=== PATIENT | male | born 1985 | race Caucasian/White ===

== ENCOUNTER 2023-10-04 16:32 | Emergency (ER) | payer SELFPAY ==
[2023-10-04] VITALS (11 sets, daily range): BP systolic 92–127; BP diastolic 58–76; PULSE 94–127; RESP 15–20; TEMP 36.8–39.5; O2SAT 95–99; BMI 21.1
--- NOTE | 2023-10-04 16:52 | CT_ITS ---
EXAM: CT ABDOMEN AND PELVIS WITH INTRAVENOUS CONTRAST CLINICAL INDICATION: RLQ pain TECHNIQUE: Helically acquired images were obtained of the abdomen and pelvis with intravenous contrast. CTDIvol = ( 9.12 ) mGy, DLP = ( 432.00 ) mGycm This CT exam was performed using one or more of the following dose reduction techniques: automated exposure control, adjustment of the mA and/or kV according to patient size, and/or use of iterative reconstruction technique. CONTRAST: IV 100mL Isovue-370 COMPARISON: No relevant prior studies available. FINDINGS: LOWER THORAX: Unremarkable. Lung bases are clear. No cardiomegaly. No significant pericardial effusion. ABDOMEN: LIVER: Unremarkable. Homogeneous. No focal mass. GALLBLADDER AND BILE DUCTS: Unremarkable. No calcified gallstones. No gallbladder distention or wall edema. No intra- or extrahepatic biliary ductal dilation. PANCREAS: Unremarkable. No focal cystic or solid mass. SPLEEN: Unremarkable. Normal size without focal cystic or solid mass. ADRENALS: Unremarkable. No nodules. KIDNEYS AND URETERS: Unremarkable. Normal renal size and position. No hydronephrosis. STOMACH AND BOWEL: Unremarkable. No stomach or bowel distention. No focal inflammatory change. PELVIS: APPENDIX: Findings of acute retrocecal appendicitis. Appendix measures up to 1.2 cm in width with a significant amount of surrounding inflammation and some surrounding fluid in the right lower quadrant. BLADDER: Unremarkable. REPRODUCTIVE: Unremarkable as visualized. No mass. ABDOMEN and PELVIS: INTRAPERITONEAL SPACE: Unremarkable. No ascites or other fluid collection. No free intraperitoneal air. BONES/JOINTS: Unremarkable. No suspicious lytic or blastic abnormality. SOFT TISSUES: Unremarkable. No discrete abdominal or pelvic wall hernia. VASCULATURE: Unremarkable. Abdominal aorta is non-dilated. LYMPH NODES: Unremarkable. No enlarged lymph nodes. OTHER FINDINGS: No definite phlegmon or abscess. CT/Abdomen/Pelvis W IV Cont ONLY IMPRESSION: 1. Acute retrocecal appendicitis. Although there is no free intraperitoneal air, there is some fluid surrounding the appendix raising the possibility of microperforation although this could also be reactive. 2. No phlegmon or abscess. Electronically Signed: Cortez Dupont MD at 18:30 EST ,
--- NOTE | 2023-10-04 16:53 | EX.ED.DYSGE1 ---
HPI <HENRY Gregory - Last Filed: 10/04/23 20:57> History of Present Illness Chief Complaint: Abd Pain Narrative Narrative: Patient presenting today due to abdominal pain that started around 1 AM this morning. He reports that the pain started as a sharp and constant periumbilical pain that now seems to be more located to his right lower quadrant. He reports that the pain did seem to get a little bit better once he arrived here in the ED. He reports that initially, trying to eat/drink did seem to make the pain worse. He denies any alleviating factors. He denies any history of abdominal surgery or kidney stones. He denies any fever, chills, nausea, vomiting, diarrhea, constipation, and urinary symptoms. Past medical history includes hemophilia B. PFSH <HENRY Gregory - Last Filed: 10/04/23 20:57> [facility] Home Medications lisinopril 5 mg tablet 5 mg PO QHS 10/04/23 [History Last Taken 10/03/23] Allergy/AdvReac Type Severity Reaction Status Date / Time No Known Allergies Allergy Verified 10/04/23 16:36 Social History Smoking Status: Never smoker ROS <HENRY Gregory - Last Filed: 10/04/23 20:57> ROS ED Constitutional Constitutional ED: Denies chills or fever(s) Cardiovascular Cardiovascular: Denies chest pain Respiratory/Chest Respiratory/Chest: Denies cough or dyspnea Gastrointestinal Gastrointestinal: Reports abdominal pain; Denies constipation, diarrhea, nausea or vomiting Genitourinary Genitourinary ED: Denies dysuria, hematuria or urinary urgency Musculoskeletal Musculoskeletal: Denies arthralgias or myalgias Integumentary Denies rash Neurologic Neurologic: Denies weakness EXAM <HENRY Gregory - Last Filed: 10/04/23 20:57> Physical Exam Const Vital Signs: 10/04/23 16:33 10/04/23 17:30 10/04/23 18:20 Temperature 98.2 F 98.6 F 100 F H Temperature Source Temporal Temporal Oral Pulse Rate 127 H Respiratory Rate 15 Blood Pressure 127/76 H Blood Pressure Mean 93 Pulse Ox 98 Oxygen Delivery Method Room Air 10/04/23 19:12 10/04/23 20:15 10/04/23 21:00 Temperature 103.1 F H 103.1 F H 101.9 F H Temperature Source Oral Oral Oral Pulse Rate 105 H 109 H 117 H Respiratory Rate 16 16 16 Blood Pressure 126/76 H 122/64 H 106/60 Blood Pressure Mean 92 83 75 Pulse Ox 99 96 95 Oxygen Delivery Method Room Air Room Air Room Air 10/04/23 21:16 10/04/23 21:44 10/04/23 21:49 Temperature 101.9 F H 101.9 F H Temperature Source Oral Pulse Rate 111 H 111 H 116 H Respiratory Rate 16 16 20 H Blood Pressure 106/60 106/60 92/58 L Blood Pressure Mean 75 75 69 Pulse Ox 95 95 95 Oxygen Delivery Method Room Air Room Air 10/04/23 22:40 10/04/23 22:52 Temperature 99.9 F H Temperature Source Oral Pulse Rate 94 Respiratory Rate 19 H Blood Pressure 102/60 105/66 Blood Pressure Mean 74 79 Pulse Ox 98 Oxygen Delivery Method Room Air Positive well nourished, well developed and no apparent distress General Appearance ED: well developed HEENT Reports normocephalic and head/scalp atraumatic Mouth ED: Yes moist mucous membranes normal Eyes PERRL and EOMs intact bilaterally Neck full ROM and supple Chest Wall inspection of chest normal Resp normal respiratory effort and clear to auscultation bilaterally Cardio regular rate and regular rhythm GI soft to palpation, non-distended and no masses GI Narrative: Pain to palpation to McBurney's point, positive Rovsing sign, negative Baig sign, abdominal rigidity when palpating the right lower quadrant. No guarding or rebound tenderness. Back/Spine normal ROM and normal to inspection Extremity normal to inspection and full ROM Neuro oriented x3, CN's II-XII intact bilaterally, moves all extremities, no focal motor deficits and no sensory deficits noted Sensorium / Orientation: awake and alert Psych mental status grossly normal and thought process normal Skin no rashes or lesions noted and no wounds <Dr. Kodi Espinoza, DO - Last Filed: 10/04/23 22:54> Physical Exam Const Vital Signs: 10/04/23 16:33 10/04/23 17:30 10/04/23 18:20 Temperature 98.2 F 98.6 F 100 F H Temperature Source Temporal Temporal Oral Pulse Rate 127 H Respiratory Rate 15 Blood Pressure 127/76 H Blood Pressure Mean 93 Pulse Ox 98 Oxygen Delivery Method Room Air 10/04/23 19:12 10/04/23 20:15 10/04/23 21:00 Temperature 103.1 F H 103.1 F H 101.9 F H Temperature Source Oral Oral Oral Pulse Rate 105 H 109 H 117 H Respiratory Rate 16 16 16 Blood Pressure 126/76 H 122/64 H 106/60 Blood Pressure Mean 92 83 75 Pulse Ox 99 96 95 Oxygen Delivery Method Room Air Room Air Room Air 10/04/23 21:16 10/04/23 21:44 10/04/23 21:49 Temperature 101.9 F H 101.9 F H Temperature Source Oral Pulse Rate 111 H 111 H 116 H Respiratory Rate 16 16 20 H Blood Pressure 106/60 106/60 92/58 L Blood Pressure Mean 75 75 69 Pulse Ox 95 95 95 Oxygen Delivery Method Room Air Room Air 10/04/23 22:40 10/04/23 22:52 Temperature 99.9 F H Temperature Source Oral Pulse Rate 94 Respiratory Rate 19 H Blood Pressure 102/60 105/66 Blood Pressure Mean 74 79 Pulse Ox 98 Oxygen Delivery Method Room Air [facility] <HENRY Gregory - Last Filed: 10/04/23 20:57> [facility] Narrative Medical decision making narrative: Patient presenting with right lower quadrant abdominal pain that started around 1 AM today. He reports that now that he is in the ED, his pain has gotten a lot better. He does have a positive positive sign and pain to McBurney's point. Concerning for appendicitis. Labs obtained to rule out leukocytosis, anemia, electrolyte abnormality, JASON, and UTI. CT of the abdomen and pelvis obtained to rule out appendicitis and other abdominal etiology. Patient did develop a fever, he was given rectal acetaminophen. He has been given IV fluids. He does have a WBC of 15.3. CT shows acute retrocecal appendicitis with concern for microperforation. General surgery was consulted, he has been started on Zosyn. Given patient's hemophilia, we do not have factor IX transfuse that patient is going to require for the surgery. I did attempt to speak with [facility], however they did call back and refused the patient given his insurance. They suggested calling [facility], transfer is pending. Patient has been given additional IV fluids and is stable. Lab Data Attestation: I reviewed the patient's lab results. Labs: Laboratory Results - last 24 hr 10/04/23 10/04/23 10/04/23 17:00 17:49 20:20 WBC 15.3 H RBC 5.13 Hgb 13.7 Hct 41.3 MCV 80.5 MCH 26.7 L MCHC 33.2 RDW Std Deviation 37.8 RDW Coeff of Gustavo 13.0 Plt Count 296 MPV 9.1 Immature Gran % (Auto) 0.300 Neut % (Auto) 80.3 H Lymph % (Auto) 12.3 L Nolan % (Auto) 6.3 Eos % (Auto) 0.5 Baso % (Auto) 0.3 Absolute Neuts (auto) 12.3 H Absolute Lymphs (auto) 1.88 Nucleated RBC % 0 Sodium 135 L Potassium 3.4 L Chloride 103 Carbon Dioxide 27.0 Anion Gap 5 BUN 11 Creatinine 1.32 H Estim Creat Clear Calc 71.66 Est GFR (MDRD) Af Amer 79 Est GFR (MDRD) Non-Af 65 BUN/Creatinine Ratio 8.3 L Glucose 187 H Lactic Acid 0.7 Calcium 9.7 Total Bilirubin 0.90 AST 10 L ALT 13 L Alkaline Phosphatase 49 Total Protein 7.5 Albumin 4.4 Globulin 3.1 Albumin/Globulin Ratio 1.4 Lipase 33 Urine Color Yellow Urine Clarity Clear Urine pH 7.0 Ur Specific Bennett 1.005 Urine Protein Negative Urine Glucose (UA) Normal Urine Ketones Negative Urine Occult Blood 50 H Urine Nitrite Negative Urine Bilirubin Negative Urine Urobilinogen Normal Ur Leukocyte Esterase Negative Urine RBC 0-5 SEEN Urine WBC 0 SEEN Ur Squamous Epith Cells 0-5 SEEN Urine Bacteria 0 SEEN Urine Mucus 0 SEEN Radiography Diagnostic Testing: Clinical Impression(s) from Imaging Studies Abdomen/Pelvis CT 10/04/23 16:52 IMPRESSION: 1. Acute retrocecal appendicitis. Although there is no free intraperitoneal air, there is some fluid surrounding the appendix raising the possibility of microperforation although this could also be reactive. 2. No phlegmon or abscess. Electronically Signed: Cortez Dupont MD at 18:30 EST , ADDENDUM: 12/16/23 2021 IMPRESSION: 1. Acute retrocecal appendicitis. Although there is no free intraperitoneal air, there is some fluid surrounding the appendix raising the possibility of microperforation although this could also be reactive. 2. No phlegmon or abscess. N.B. : MD Karel, confirmed on 10/04/2023 20:14:20 (ET) that the healthcare facility has received the radiology report. Electronically Signed: Cortez Dupont MD at 18:30 EST , <Dr. Kodi Espinoza, DO - Last Filed: 10/04/23 22:54> [facility] Lab Data Labs: Laboratory Results - last 24 hr 10/04/23 10/04/23 10/04/23 17:00 17:49 20:20 WBC 15.3 H RBC 5.13 Hgb 13.7 Hct 41.3 MCV 80.5 MCH 26.7 L MCHC 33.2 RDW Std Deviation 37.8 RDW Coeff of Gustavo 13.0 Plt Count 296 MPV 9.1 Immature Gran % (Auto) 0.300 Neut % (Auto) 80.3 H Lymph % (Auto) 12.3 L Nolan % (Auto) 6.3 Eos % (Auto) 0.5 Baso % (Auto) 0.3 Absolute Neuts (auto) 12.3 H Absolute Lymphs (auto) 1.88 Nucleated RBC % 0 Sodium 135 L Potassium 3.4 L Chloride 103 Carbon Dioxide 27.0 Anion Gap 5 BUN 11 Creatinine 1.32 H Estim Creat Clear Calc 71.66 Est GFR (MDRD) Af Amer 79 Est GFR (MDRD) Non-Af 65 BUN/Creatinine Ratio 8.3 L Glucose 187 H Lactic Acid 0.7 Calcium 9.7 Total Bilirubin 0.90 AST 10 L ALT 13 L Alkaline Phosphatase 49 Total Protein 7.5 Albumin 4.4 Globulin 3.1 Albumin/Globulin Ratio 1.4 Lipase 33 Urine Color Yellow Urine Clarity Clear Urine pH 7.0 Ur Specific Bennett 1.005 Urine Protein Negative Urine Glucose (UA) Normal Urine Ketones Negative Urine Occult Blood 50 H Urine Nitrite Negative Urine Bilirubin Negative Urine Urobilinogen Normal Ur Leukocyte Esterase Negative Urine RBC 0-5 SEEN Urine WBC 0 SEEN Ur Squamous Epith Cells 0-5 SEEN Urine Bacteria 0 SEEN Urine Mucus 0 SEEN Radiography Diagnostic Testing: Clinical Impression(s) from Imaging Studies Abdomen/Pelvis CT 10/04/23 16:52 IMPRESSION: 1. Acute retrocecal appendicitis. Although there is no free intraperitoneal air, there is some fluid surrounding the appendix raising the possibility of microperforation although this could also be reactive. 2. No phlegmon or abscess. Electronically Signed: Cortez Dupont MD at 18:30 EST , ADDENDUM: 10/04/232020 IMPRESSION: 1. Acute retrocecal appendicitis. Although there is no free intraperitoneal air, there is some fluid surrounding the appendix raising the possibility of microperforation although this could also be reactive. 2. No phlegmon or abscess. N.B. : MD Karel, confirmed on 10/04/2023 20:14:20 (ET) that the healthcare facility has received the radiology report. Electronically Signed: Cortez Dupont MD at 18:30 EST , Treatment and Re-Evaluation :: I have personally performed a face to face assessment of the patient and have reviewed the ITALIA Note. I performed a substantive portion of the visit including all aspects of the following. My clark findings include: History: Patient presents with abdominal pain that began today. Patient states he woke up with pain in his abdomen this morning. Patient states the pain was periumbilical initially. Patient states the pain is now on the right side of his abdomen. Patient states it is worse with pressure and palpation over the area. Patient describes it as dull but sharp at times. Patient states it has been constant throughout the day. Patient denies any nausea or vomiting. Patient does admit to decreased appetite however. Patient denies any diarrhea, melena, or hematochezia. Patient denies any urinary complaints. Exam: Vital signs are stable except for tachycardia of 127. Patient is afebrile. Patient is in no acute distress. Oral mucosa is pink and moist. Neck is supple. Trachea is midline. There is no JVD. Heart was regular and tachycardic. Lungs are clear and equal bilaterally. Abdomen is soft. Bowel sounds are normal. There is some right lower quadrant tenderness. There is no rebound or guarding noted. Cranial nerves II through XII are intact. There are no focal motor or sensory deficits noted. Medical Decision Making: Differential diagnosis includes appendicitis, ureteral calculus, mesenteric adenitis, urinary tract infection, pancreatitis, gastroenteritis, and viral illness. CT scan of the abdomen pelvis will be obtained to assess for pancreatitis, appendicitis, and ureteral calculus. CBC will be obtained to assess for leukocytosis and anemia. Comprehensive metabolic profile will be obtained to assess for electrolyte abnormality, renal function, and hepatic function. Lipase will be obtained to assess for pancreatitis. CBC was reviewed. There is a leukocytosis of 15.3. The remainder is within normal limits. Comprehensive metabolic profile was reviewed. Creatinine was slightly elevated at 1.32. Glucose was slightly elevated at 187. The remainder was essentially within normal limits. Lipase was reviewed and was normal at 33. Urinalysis was reviewed. There is no evidence of urinary tract infection or hematuria. CT scan of the abdomen pelvis was obtained. There is acute retrocecal appendicitis. There is no free air noted. There is some fluid surrounding the appendix that could represent microperforation. There is no evidence of any phlegmon or abscess. This was interpreted by the radiologist and was also independently reviewed by myself. Patient was given IV fluids. Patient was started on Zosyn. Patient developed a fever of 103.1. Patient was given rectal Tylenol for his fever. Patient temperature improved to 101.9 after this. Case was discussed with Dr. Julien. He was in to evaluate the patient. Since the patient has hemophilia B and requires factor IX infusions, he recommended transferring the patient to a facility that has factor IX. Patient initially requested to go to [facility] where his sports administrator practices. Patient was refused at [facility] due to the fact that he is self-pay and has no medical insurance. Case was discussed with [facility]. Patient was accepted to the emergency department there. Patient will be transferred there. Patient and spouse understood and were agreeable with the plan. Transfer form was filled out and placed on the chart. All questions were answered. <Dr. Kodi Espinoza, DO - Last Filed: 10/04/23 22:54> Critical Care Time Critical Care Time: Yes Critical care time (excluding procedures): 30-74 minutes (34), Including time spent:, Discussing w/Patient &/or Family/Building Supplies Salesperson Retail, Discussing w/Consultants, Arranging Admission or Transfer and Performing Direct Patient Care at Bedside Discharge Plan Triage Chief Complaint: Abd Pain ED Midlevel Provider: Yamileth Tijerina ED Provider: Kodi Espinoza Dx/Rx/DC Orders Clinical Impression: Acute perforated appendicitis, Hemophilia B Prescriptions: No Action lisinopril 5 mg tablet 5 mg PO QHS Primary Care Provider: Care Physician,No Primary Referrals: Care Physician,No Primary [Primary Care Provider] - Disposition Disposition: Acute Care Hospital Discharge Location: [facility]
[2023-10-04 17:15] LABS: Absolute Lymphocyte Count 1.88 X10^3/uL (0.83-4.51); Absolute Neutrophil Count 12.3 X10^3/uL (2.0-7.7); Basophil# 0.04 X10^3/uL; Basophil% 0.3 % (0-1); Eosinophil# 0.08 X10^3/uL; Eosinophils% 0.5 % (0-5); Hematocrit 41.3 % (40-54); Hemoglobin 13.7 g/dL (13.0-16.5); Lymphocyte # 1.88 X10^3/ul (0.83-4.51); Lymphocyte % 12.3 % (19-41); Mean Corp Hgb Conc 33.2 g/dL (32-36); Mean Corpuscular Hgb 26.7 pg (27.0-32.0); Mean Corpuscular Volume 80.5 fL (80-94); Mean Platelet Vol. 9.1 fl (6.2-12.0); Monocyte# 0.97 X10^3/uL; Monocyte% 6.3 % (0-10); NRBC Flagged by Analyzer 0 % (0-5); Neutrophil # 12.31 X10^3/uL (2.7-7.7); Neutrophil % 80.3 % (47-70); Platelet Count 296 K/mm3 (150-450); RBC Distribution Width SD 37.8 fl (35.1-43.9); Red Blood Count 5.13 M/mm3 (4.6-6.2); White Blood Count 15.3 K/mm3 (4.4-11.0)
[2023-10-04 17:30] LABS: ALB/GLOB Ratio 1.4 RATIO (0.9-2.4); AST(SGOT) 10 U/L (15-37); Alanine Aminotransfer ALT/SGPT 13 U/L (16-61); Albumin, Serum 4.4 g/dL (3.2-5.0); Alkaline Phosphatase 49 U/L (45-117); Anion Gap 5 (5-15); BUN 11 mg/dL (7-18); BUN/Creat Ratio 8.3 RATIO (10-20); Calcium,Total 9.7 mg/dL (8.5-10.1); Chloride 103 mmol/L (98-107); Creatinine, Serum 1.32 mg/dL (0.70-1.30); EST Glomerular Filtration Rate 65 mL/min (>60); Est Glom Filt Rate - Afr Amer 79 mL/min (>60); Estimated Creatinine Clearance 71.66 ml/min; Globulin 3.1 g/dL (2.2-4.2); Glucose 187 mg/dL (74-106); Lipase 33 U/L (13-75); Potassium 3.4 mmol/L (3.5-5.1); Protein, Total 7.5 g/dL (6.4-8.2); Sodium Level 135 mmol/L (136-145)
[2023-10-04 17:53] LABS: Bacteria 0 SEEN /hpf (None Seen); Mucous, Urine 0 SEEN /hpf (<or=2+); White Blood Cells 0 SEEN /hpf (0-5)
[2023-10-04] MEDS: 0.9% Normal Saline (1000mL) 1,000 ML 999 ML IV (17:59)
[2023-10-04] MEDS: Ondansetron 4 MG/2 ML Vial IV (18:10)
[2023-10-04] MEDS: Morphine 4 MG/ML Syringe IV (18:10)
[2023-10-04 18:14] LABS: Color, Urine Yellow (Yellow); Glucose, Dipstick Normal (Normal); Ketone-Dipstick Negative (Negative); Leukocyte Esterase-Dipstick Negative /ul (Negative); Nitrite-Dipstick Negative (Negative); Occult Blood-Urine 50 /ul (Negative); Protein-Dipstick Negative (Negative); Specific Gravity, Urine 1.005 (1.002-1.030); Urine Bilirubin Dipstick Negative (Negative); Urine Clarity Clear (Clear); Urine Urobilinogen Normal (Normal)
[2023-10-04 18:25] LABS: Red Blood Cells-Urine 0-5 SEEN /hpf (0-5)
[2023-10-04 18:26] LABS: Squamous Epithelial Cells - UA 0-5 SEEN /hpf (0-5)
[2023-10-04] MEDS: Acetaminophen 650 MG Suppository RC (18:39)
[2023-10-04] MEDS: Piperacil/Tazobactam 4.5 GM in 0.9% Normal Saline (100mL MB+) 100 ML IV (18:57)
[2023-10-04] MEDS: 0.9% Normal Saline (1000mL) 1,000 ML 1000 ML IV ×2 (20:14→22:31)
--- NOTE | 2023-10-04 20:36 | CON.PCM.SX_ITS ---
Assessment & Plan Assessment/Plan (1) Acute perforated appendicitis: PLAN: The patient has perforated appendicitis per his CT scan. He is also febrile. I reviewed his CT scan and there is some fluid around the appendix but I am concerned as they do not see the base of the appendix. The appendix may have perforated at the base and the patient may require ileocecectomy. I discussed this with the patient but the patient is hemophilia type B factor IX deficiency. I discussed this with our wood last maker and the wood last maker here do not treat hemophilia and we do not have any factor IX in our hospital. He inform you that the factor IX would have to be repleted continuously for 7 days after surgery to keep the levels up. I will try to transfer him to his hospital that his wood last maker is at. His wood last maker is at . I am trying to get him quickly transfered so that he may be definitively treated at a center that has factor IX available. Junito Julien MD Pager: [facility] [address] [place] [address], [address] [place] [address] Office: HPI Consult Data Date of Consult: 10/04/23 HPI Narrative HPI Narrative: AYLEEN BAEZ, is a 37 M who presents with right lower quadrant pain. Patient reports the pain started this afternoon. He says it worsened and then on his way into the hospital and got better all of a sudden now it is worsening again. He is having fever in the ER. He denies nausea or vomiting. He says the pain was in the right lower quadrant. Patient also has hemophilia B factor IX deficiency. [facility] Home Medications lisinopril 5 mg tablet 5 mg PO QHS 10/04/23 [History Last Taken 10/03/23] Allergy/AdvReac Type Severity Reaction Status Date / Time No Known Allergies Allergy Verified 10/04/23 16:36 Social History Smoking Status: Never smoker ROS Eyes Eyes: Denies blurry vision or change in vision ENT HEENT: Denies abnormal hearing Cardiovascular Cardiovascular: Denies chest pain Respiratory/Chest Respiratory/Chest: Denies cough or dyspnea Gastrointestinal Gastrointestinal: Reports abdominal pain; Denies bloating, change in bowel hab its, nausea or vomiting Genitourinary Genitourinary: Denies change in urinary stream Musculoskeletal Musculoskeletal: Denies abnormal gait or back pain Integumentary Integumentary: Denies jaundice or new lesions Neurologic Neurologic: Denies abnormal gait Psychiatric Psychiatric: Denies anxiety Endocrine Endocrinology: Denies flushing Hematologic/Lymphatic Hematologic/Lymphatic: Reports easy bleeding Physical Exam Const alert and oriented x3 HEENT normocephalic Eyes PERRL Neck full ROM Lymph Lymphatic: no lymphadenopathy noted Chest inspection of chest normal Resp normal respiratory effort Cardio Rate: tachycardic Rhythm: regular rhythm GI soft to palpation and non-distended Palpation: tender RLQ Extremity normal to inspection Skin no rashes or lesions noted Neuro CN's II-XII intact bilaterally Lab / Micro Data 10/04/23 17:00 10/04/23 17:00 Labs: Laboratory Results - last 24 hr 10/04/23 17:00: WBC 15.3 H, RBC 5.13, Hgb 13.7, Hct 41.3, MCV 80.5, MCH 26.7 L, MCHC 33.2, RDW Std Deviation 37.8, RDW Coeff of Gustavo 13.0, Plt Count 296, MPV 9.1, Immature Gran % (Auto) 0.300, Neut % (Auto) 80.3 H, Lymph % (Auto) 12.3 L, [place] % (Auto) 6.3, Eos % (Auto) 0.5, Baso % (Auto) 0.3, Absolute Neuts (auto) 12.3 H, Absolute Lymphs (auto) 1.88, Nucleated RBC % 0, Sodium 135 L, Potassium 3.4 L, Chloride 103, Carbon Dioxide 27.0, Anion Gap 5, BUN 11, Creatinine 1.32 H , Estim Creat Clear Calc 71.66, Est GFR (MDRD) Af Amer 79, Est GFR (MDRD) Non-Af 65, BUN/Creatinine Ratio 8.3 L, Glucose 187 H, Calcium 9.7, Total Bilirubin 0.90, AST 10 L, ALT 13 L, Alkaline Phosphatase 49, Total Protein 7.5, Albumin 4.4, Globulin 3.1, Albumin/Globulin Ratio 1.4, Lipase 33 10/04/23 17:49: Urine Color Yellow, Urine Clarity Clear, Urine pH 7.0, Ur Specific [place] 1.005, Urine Protein Negative, Urine Glucose (UA) Normal, Urine Ketones Negative, Urine Occult Blood 50 H, Urine Nitrite Negative, Urine Bilirubin Negative, Urine Urobilinogen Normal, Ur Leukocyte Esterase Negative, Urine RBC 0-5 SEEN, Urine WBC 0 SEEN, Ur Squamous Epith Cells 0-5 SEEN, Urine Bacteria 0 SEEN, Urine Mucus 0 SEEN Imagaing Radiology Impression Abdomen/Pelvis CT 10/04/23 16:52 IMPRESSION: 1. Acute retrocecal appendicitis. Although there is no free intraperitoneal air, there is some fluid surrounding the appendix raising the possibility of microperforation although this could also be reactive. 2. No phlegmon or abscess. Electronically Signed: Cortez Dupont MD at 18:30 EST Reading Location ID and State: [facility] / MD Tel , Service support , ADDENDUM: 10/04/232020 IMPRESSION: 1. Acute retrocecal appendicitis. Although there is no free intraperitoneal air, there is some fluid surrounding the appendix raising the possibility of microperforation although this could also be reactive. 2. No phlegmon or abscess. N.B. : MD Karel, confirmed on 10/04/2023 20:14:20 (ET) that the healthcare facility has received the radiology report. Electronically Signed: Cortez Dupont MD at 18:30 EST ,
[2023-10-04 20:52] LABS: Lactic Acid 0.7 mmol/L (0.4-1.9)
[2023-10-04] MEDS: 0.9% Normal Saline (1000mL) 1,000 ML 100 ML IV (21:47)
== END 2023-10-04 23:47 | disposition short-term general hospital (02) ==
PROVIDERS: Physician Assistant; Emergency Provider Emergency Medicine; Visit Provider Emergency Medicine
DX: K35.32 Acute appendicitis with perforation, localized peritonitis, and gangrene, without abscess (principal); D66 Hereditary factor VIII deficiency; Z79.899 Other long term (current) drug therapy
CPT/HCPCS: 74177; 80053; 81001; 83605; 83690; 85025; 96365; 96375; 99285; J7030; J7040; Q9967; A4216; J2405